=== PATIENT | female | born 1960 | race Two or more races ===

== ENCOUNTER 2021-09-01 17:06 | Inpatient (IN) | payer OTHER ==
[~2021-09-01] VITALS: Ht 149.9 cm; Wt 63.5 kg
[2021-09-01] MEDS ORDERED: BENA5TAB6 PO (17:15)
[2021-09-01] MEDS ORDERED: ATOR10TA69 PO (17:15)
[2021-09-01] MEDS ORDERED: DICL25TA2 PO (17:17)
[2021-09-01] MEDS ORDERED: METF-873 PO (17:17)
[2021-09-01] MEDS ORDERED: OLOP5DRO14 OP (17:17)
[2021-09-01] MEDS ORDERED: METH25VI63 IJ (17:17)
[2021-09-01] MEDS ORDERED: OMEG100017 PO (17:17)
[2021-09-01] MEDS ORDERED: HYDR200T35 PO (17:17)
[2021-09-01] MEDS ORDERED: FOLI-43 PO (17:17)
[2021-09-01] MEDS ORDERED: ALLO100T PO (17:17)
[2021-09-01] MEDS ORDERED: OMEP40CA20 PO (17:17)
[2021-09-01] MEDS ORDERED: ASPIRIN 325MG EC TABLET PO ONE (18:00)
[2021-09-01 18:21] LABS: BASOPHILS % 0.5 % (0.0-2.0); EOSINOPHILS % 0.2 % (0.0-5.0); HEMOGLOBIN. 13.7 g/dL (12.0-16.0); LYMPHOCYTES % 12.7 % (20.0-50.0); MEAN CORPUSCULAR VOLUME 89.5 fL (81.0-99.0); MONOCYTES % 6.8 % (2.0-8.0); NEUTROPHILS % 79.8 % (40.0-76.0); PLATELET 279 x1000/uL (130-400); RED BLOOD CELL COUNT 4.58 mill/uL (4.2-5.4); RED CELL DISTRIBUTION WIDTH 14.4 % (11.6-14.6)
[2021-09-01 18:28] LABS: CHLORIDE 106 mEq/L (98-107)
[2021-09-01] MEDS ORDERED: MORPHINE SULFATE 4 MG/ML CPJ (NOT FOR IM USE) IV STA (20:47)
[2021-09-01] MEDS ORDERED: SODIUM CHLORIDE 0.9% 1,000 ML IV ONE (21:15)
[2021-09-01] MEDS ORDERED: DEXTROSE 50% WATER 50ML SYRINGE IV PRN (21:45)
[2021-09-01] MEDS ORDERED: DIPHENHYDRAMINE 50MG/ML VIAL IV PRN (21:45)
[2021-09-01] MEDS ORDERED: HYDRALAZINE 20MG/ML VIAL IV PRN (21:45)
[2021-09-01] MEDS ORDERED: CLONIDINE 0.1MG TABLET PO PRN (21:45)
[2021-09-01] MEDS ORDERED: MORPHINE SULFATE 4 MG/ML CPJ (NOT FOR IM USE) IV PRN (21:45)
[2021-09-01] MEDS ORDERED: ACETAMINOPHEN 325MG TABLET PO PRN (21:45)
[2021-09-01] MEDS ORDERED: ONDANSETRON HCL 4MG/2ML INJ IV PRN (21:45)
[2021-09-01] MEDS: SODIUM CHLORIDE 0.9% INJ 3ML FLUSH IVF SCH (22:30)
[2021-09-01] MEDS: DEXT 5%/0.45% NACL 1000ML 1,000 ML IV SCH (22:36)
[2021-09-01] MEDS: ENOXAPARIN 40MG/0.4ML SYR SUBCUT SCH (22:53)
[2021-09-02 04:00] VITALS: BP 157/72
[2021-09-02] MEDS: SODIUM CHLORIDE 0.9% INJ 3ML FLUSH IVF SCH ×2 (06:00→14:00)
[2021-09-02] MEDS: BLOOD SUGAR DIAGNOSTIC STRIP TEST SCH ×3 (07:40→17:20)
[2021-09-02] MEDS: INSULIN LISPRO 100 UNITS/ML SUBCUT SCH ×3 (07:50→17:50)
[2021-09-02 08:00] VITALS: BP 154/75
[2021-09-02] MEDS ORDERED: PANTOPRAZOLE SODIUM 40 MG/VIAL IV SCH (09:00)
[2021-09-02] MEDS: ACETAMINOPHEN 325MG TABLET PO PRN ×2 (10:26→17:38)
[2021-09-02] MEDS: ENOXAPARIN 40MG/0.4ML SYR SUBCUT SCH (10:26)
[2021-09-02] MEDS: DEXT 5%/0.45% NACL 1000ML 1,000 ML IV SCH ×2 (11:35→12:49)
[2021-09-02 12:00] VITALS: BP 149/76
[2021-09-02 16:00] VITALS: BP 147/74
[2021-09-02 19:01] VITALS: BP 110/50
== END 2021-09-02 20:25 | disposition home or self-care (01) | DRG 391 ==
LOC: ER 17:06 → MICUSO 21:02 → 6WST 09-02 02:31
PROVIDERS: ADMIT Internal Medicine; ATTEND Internal Medicine
DX: K21.9 Gastro-esophageal reflux disease without esophagitis (principal); K85.90 Acute pancreatitis without necrosis or infection, unspecified; E78.5 Hyperlipidemia, unspecified; M06.9 Rheumatoid arthritis, unspecified; E11.9 Type 2 diabetes mellitus without complications; I10 Essential (primary) hypertension; E78.00 Pure hypercholesterolemia, unspecified; R07.89 Other chest pain; Z79.899 Other long term (current) drug therapy; Z85.048 Personal history of other malignant neoplasm of rectum, rectosigmoid junction, and anus; Z80.0 Family history of malignant neoplasm of digestive organs; Z79.84 Long term (current) use of oral hypoglycemic drugs; Z90.49 Acquired absence of other specified parts of digestive tract
CPT/HCPCS: 36415; 71045; 74176; 76700; 80053; 80061; 82962; 83036; 83880; 84484; 85025; 93005; 99285; C9113; J1650; J2270; J7030

== ENCOUNTER 2023-04-12 22:33 | Emergency (ER) | payer OTHER ==
[~2023-04-12] VITALS: Ht 149.9 cm; Wt 56.1 kg
[~2023-04-12 22:33] MED LIST: ALLO100T PO; ATOR10TA69 PO; BENA5TAB40 PO; DICL25TA10 PO; FOLI-43 PO; HYDR200T35 PO; METF-873 PO; METH25VI63 IJ; OLOP5DRO25 OP; OMEG100017 PO; OMEP40CA20 PO
[2023-04-12 22:38] VITALS: O2SAT 98
[2023-04-12 23:35] LABS: CLARITY URINE CLEAR (CLEAR); COLOR URINE YELLOW (YELLOW)
[2023-04-12 23:36] LABS: GLUCOSE URINE NEGATIVE (NEGATIVE); KETONES URINE NEGATIVE (NEGATIVE); LEUKOCYTE ESTERASE URINE NEGATIVE (NEGATIVE); NITRITE URINE NEGATIVE (NEGATIVE); OCCULT BLOOD URINE NEGATIVE (NEGATIVE); PH URINE 5.5 (4.5-8.0); PROTEIN URINE TRACE (NEGATIVE); SPECIFIC GRAVITY URINE >1.030 (1.005-1.030); UROBILINOGEN URINE 0.2 E.U./dL (0.2-1.0)
[2023-04-12 23:51] LABS: HEMATOCRIT. 43.2 % (36.0-48.0); HEMOGLOBIN. 14.4 g/dL (12.0-16.0); MEAN CORPUSCULAR HEMOGLOBIN 32.5 pg (28.0-32.0); MEAN CORPUSCULAR HGB CONC 33.3 g/dL (31.0-37.0); MEAN CORPUSCULAR VOLUME 97.5 fL (81.0-99.0); MEAN PLATELET VOLUME 7.9 fl (7.4-10.4); PLATELET 282 x1000/uL (130-400); RED BLOOD CELL COUNT 4.43 mill/uL (4.2-5.4); RED CELL DISTRIBUTION WIDTH 14.4 % (11.6-14.6); WHITE BLOOD COUNT 8.4 x1000/uL (4.5-11.0)
[2023-04-13] LABS: DIFFERENTIAL COMMENT 1
[2023-04-13 00:11] LABS: ALANINE AMINOTRANSFERASE 43 IU/L (10-49); ALBUMIN 4.9 g/dL (3.2-4.8); ASPARTATE AMINOTRANSFERASE 35 IU/L (<34); BILIRUBIN TOTAL 1.4 mg/dL (0.1-1.0); CALCIUM 9.5 mg/dL (8.7-10.4); CARBON DIOXIDE 21 mEq/L (21-32); CHLORIDE 106 mEq/L (98-107); CREATININE 0.8 mg/dL (0.6-1.0); GLUCOSE 166 mg/dL (70-105); POTASSIUM 3.3 mEq/L (3.5-5.1); PROTEIN TOTAL 7.5 g/dL (6.0-8.3); SODIUM 138 mEq/L (136-145); UREA NITROGEN BLOOD 10 mg/dL (9-23)
[2023-04-13 00:21] LABS: TROPONIN I HIGH SENSITIVITY < 4 ng/L (3.0-34)
[2023-04-13] MEDS ORDERED: ONDANSETRON HCL 4MG/2ML INJ IV STA (03:50)
[2023-04-13] MEDS ORDERED: KETOROLAC 30MG/ML VIAL IV STA (03:50)
[2023-04-13] MEDS ORDERED: FAMOTIDINE 20MG/2ML VIAL IV STA (03:50)
[2023-04-13] MEDS ORDERED: SODIUM CHLORIDE 0.9% 1,000 ML IV ONE (04:00)
[2023-04-13] MEDS ORDERED: FAMOTIDINE 20MG/2ML VIAL IV NR (04:45)
[2023-04-13 05:32] LABS: PLATELET ESTIMATE NORMAL
[2023-04-13 07:34] LABS: BACTERIA URINE NONE SEEN; RBC URINE NONE SEEN /hpf (0-2); SQUAMOUS EPITHELIAL CELL URINE FEW /lpf (RARE/1+); WBC URINE 0-2 /hpf (0-2)
[2023-04-13] MEDS ORDERED: FAMO-135 MT (08:16)
[2023-04-13 09:15] VITALS: BP 129/60; PULSE 86; RESP 16; TEMP 98.3
== END 2023-04-13 09:16 | disposition home or self-care (01) ==
LOC: ER 22:33
DX: R10.11 Right upper quadrant pain (principal); E11.9 Type 2 diabetes mellitus without complications; E78.00 Pure hypercholesterolemia, unspecified; I10 Essential (primary) hypertension; Z90.49 Acquired absence of other specified parts of digestive tract
CPT/HCPCS: 80053; 81003; 85025; 84484; 36415 ×2; 71045; 93005; 99285; 83605; 83690; 74176; 96361; 96374; 96375; J3490; J1885; J2405; J7030; Z7610 ×2

== ENCOUNTER 2024-07-22 07:55 | Emergency (ER) | payer OTHER ==
[~2024-07-22] VITALS: Ht 149.9 cm; Wt 54.0 kg
[~2024-07-22 07:55] MED LIST changes: +FAMO-135 MT; +METF-1149 PO; -METF-873 PO
[2024-07-22 07:58] VITALS: O2SAT 100
[2024-07-22 08:01] VITALS: BP 136/59; PULSE 91; RESP 12; TEMP 36.8; O2SAT 100
[2024-07-22] MEDS: ONDANSETRON 4MG ODT PO ONE (08:15)
[2024-07-22] MEDS: FAMOTIDINE 20MG TABLET PO ONE (08:15)
[2024-07-22] MEDS: MAGNESIUM/ALUMINUM HYDROXIDE/SIMETHICONE 30ML UDC PO ONE (08:15)
[2024-07-22 08:23] LABS: BASOPHILS % 0.5 % (0.0-2.0); EOSINOPHILS % 0.8 % (0.0-5.0); HEMOGLOBIN. 13.6 g/dL (12.0-16.0); LYMPHOCYTES % 19.2 % (20.0-50.0); MEAN CORPUSCULAR HEMOGLOBIN 30.5 pg (28.0-32.0); MEAN CORPUSCULAR HGB CONC 33.1 g/dL (31.0-37.0); MEAN PLATELET VOLUME 7.8 fl (7.4-10.4); MONOCYTES % 5.7 % (2.0-8.0); NEUTROPHILS % 73.8 % (40.0-76.0); PLATELET 241 x1000/uL (130-400); RED BLOOD CELL COUNT 4.45 mill/uL (4.2-5.4); WHITE BLOOD COUNT 4.6 x1000/uL (4.5-11.0)
[2024-07-22 08:29] LABS: CHLORIDE 103 mEq/L (98-107); POTASSIUM 3.3 mEq/L (3.5-5.1); SODIUM 141 mEq/L (136-145)
[2024-07-22 08:30] LABS: CARBON DIOXIDE 29 mEq/L (21-32)
[2024-07-22 08:31] LABS: CALCIUM 9.6 mg/dL (8.7-10.4)
[2024-07-22 08:35] LABS: CREATININE 0.8 mg/dL (0.6-1.0)
[2024-07-22 08:36] LABS: GLUCOSE 162 mg/dL (70-105); UREA NITROGEN BLOOD 9 mg/dL (9-23)
[2024-07-22 08:38] LABS: ALANINE AMINOTRANSFERASE 25 IU/L (10-49); ALBUMIN 4.3 g/dL (3.2-4.8); ASPARTATE AMINOTRANSFERASE 26 IU/L (<34); BILIRUBIN DIRECT 0.2 mg/dL (<=3.0); BILIRUBIN TOTAL 0.8 mg/dL (0.1-1.0)
[2024-07-22 08:55] LABS: TROPONIN I HIGH SENSITIVITY < 4 ng/L (3.0-34)
[2024-07-22] MEDS: POTASSIUM CHLORIDE 20MEQ/PACKET PO ONE (09:07)
[2024-07-22 09:17] LABS: CLARITY URINE CLEAR (CLEAR); COLOR URINE YELLOW (YELLOW); GLUCOSE URINE NEGATIVE (NEGATIVE); KETONES URINE NEGATIVE (NEGATIVE); LEUKOCYTE ESTERASE URINE NEGATIVE (NEGATIVE); NITRITE URINE NEGATIVE (NEGATIVE); OCCULT BLOOD URINE NEGATIVE (NEGATIVE); PH URINE 5.5 (4.5-8.0); PROTEIN URINE NEGATIVE (NEGATIVE); SPECIFIC GRAVITY URINE 1.005 (1.005-1.030); UROBILINOGEN URINE 0.2 E.U./dL (0.2-1.0)
[2024-07-22] MEDS ORDERED: TAMS-11 MT (10:38)
[2024-07-22] MEDS ORDERED: ACET-2708 MT (10:38)
== END 2024-07-22 10:48 | disposition home or self-care (01) ==
LOC: ER 07:55
DX: N20.0 Calculus of kidney (principal); E11.9 Type 2 diabetes mellitus without complications; E78.00 Pure hypercholesterolemia, unspecified; I10 Essential (primary) hypertension; M19.90 Unspecified osteoarthritis, unspecified site
CPT/HCPCS: 99284; 74176; 80076; 80048; 81003; 83690; 85025; 84484; 36415; Q0162

== ENCOUNTER 2025-02-17 07:46 | Emergency (ER) | payer OTHER ==
[~2025-02-17] VITALS: Ht 162.6 cm; Wt 66.0 kg
[~2025-02-17 07:46] MED LIST changes: +ACET-2708 MT; +TAMS-54 MT
[2025-02-17 07:51] VITALS: O2SAT 98
[2025-02-17] MEDS ORDERED: DEXAMETHASONE 1 MG/ML ORAL SYR PO ONE (08:30)
[2025-02-17] MEDS: ACETAMINOPHEN 325MG TABLET PO ONE (08:30)
[2025-02-17] MEDS: LIDOCAINE 5% PATCH TOP SCH (09:00)
[2025-02-17] MEDS: DEXAMETHASONE 10 MG/ML VIAL PO NR (09:00)
[2025-02-17] MEDS ORDERED: LIDO-53 TP (09:39)
[2025-02-17 09:49] VITALS: BP 147/59; PULSE 100; RESP 18; TEMP 37.1; O2SAT 98
== END 2025-02-17 09:55 | disposition home or self-care (01) ==
LOC: ER 07:46
DX: M54.16 Radiculopathy, lumbar region (principal); M79.18 Myalgia, other site; E11.9 Type 2 diabetes mellitus without complications; E78.00 Pure hypercholesterolemia, unspecified; I10 Essential (primary) hypertension; Z79.899 Other long term (current) drug therapy
CPT/HCPCS: 99284; J1100; J8540